=== PATIENT | female | born 1960 | race Caucasian/White ===

== ENCOUNTER 2020-07-23 14:33 | Emergency (ER) | payer OTHER ==
[2020-07-23] MEDS ORDERED: CYCLOBENZAPRINE10 MG PO (17:20)
== END 2020-07-23 17:35 | disposition home or self-care (01) ==
LOC: ER1 14:33
DX: S29.012A Strain of muscle and tendon of back wall of thorax, initial encounter (principal); E11.9 Type 2 diabetes mellitus without complications; Z90.49 Acquired absence of other specified parts of digestive tract; Z90.89 Acquired absence of other organs; Z90.710 Acquired absence of both cervix and uterus; X50.1XXA Overexertion from prolonged static or awkward postures, initial encounter
CPT/HCPCS: 72072; 96372; 99283; J1885